=== PATIENT | female | born 1985 | race Caucasian/White ===

== ENCOUNTER → 2016-05-23 | Outpatient (CLI) | payer OTHER ==
--- NOTE | 2016-05-23 10:24 | MR ---
EXAMINATION TYPE: MR lumbar spine wo con DATE OF EXAM: 05/23/2016 10:17 AM COMPARISON: 10/01/2015 HISTORY: Back pain TECHNIQUE: T1 and T2 axial and sagittal images of the lumbar spine are submitted. FINDINGS: There is no abnormal signal seen within the visualized spinal cord or paraspinal soft tissu es. Cortical loss involving the right and left mid kidney suggests possible previous infection. At L1-2 there is no disc herniation, canal stenosis, or foraminal encroachment. At L2-3 there is no disc herniation, canal stenosis, or foraminal encroachment At L3-4 there is no disc herniation, canal stenosis, or foraminal encroachment At L4-5 there is Increased signal at the posterior aspect of the disc is compatible with annular tear . Mild anterior mass effect on the thecal sac is present due to broad-based posterior central disc he rniation. There may be contact with the proximal L5 nerve roots. No significant foraminal encroachmen t. Mild hypertrophy of the ligamentum flavum and facet joints causes some posterior lateral mass effe ct on the thecal sac. At L5-S1 there is no disc herniation, canal stenosis, or foraminal encroachment IMPRESSION: 1. Stable annular tear and central disc herniation with compression of the thecal sac at L4-L5. Mild canal stenosis.
== END | disposition home or self-care (01) ==
LOC: RADMRIMAIN 09:30
PROVIDERS: ATTEND Psychiatry & Neurology Neurology
DX: M48.06 Spinal stenosis, lumbar region (principal); M51.26 Other intervertebral disc displacement, lumbar region
CPT/HCPCS: 72148

== ENCOUNTER 2017-05-20 10:54 | Emergency (ER) | payer OTHER ==
--- NOTE | 2017-05-20 12:19 | ED ---
General Adult HPI - General Chief complaint: Urogenital Stated complaint: Uti Time Seen by Provider: 05/20/17 11:31 Source: patient, RN notes reviewed, old records reviewed Mode of arrival: ambulatory Limitations: no limitations - History of Present Illness Initial comments: This is a 31-year-old female the ER for evaluation. This patient does say for evaluation regards to burning with urination. Recently diagnosed urinary tract infection taking antibiotics as appropriate with no improvement. No fevers. No flank pain. - Related Data Home Medications Medication Instructions Recorded Confirmed HYDROcodone/APAP 10-325MG [[place] 1 tab PO Q6H PRN 06/19/13 05/20/17 10-325] Gabapentin [Neurontin] 800 mg PO TID 02/18/15 05/20/17 Ibuprofen [Motrin] 800 mg PO TID 02/18/15 05/20/17 Butalb/APAP/Caff 50-325-40Mg 1 tab PO Q4H PRN 05/20/17 05/20/17 [Fioricet 50-325-40] Cetirizine HCl [Zyrtec] 10 mg PO DAILY PRN 05/20/17 05/20/17 Previous Rx's Medication Instructions Recorded Nitrofurantoin Monohyd/M-Cryst 100 mg PO Q12HR #14 cap 05/20/17 [Macrobid] Phenazopyridine [Pyridium] 200 mg PO TID #6 tablet 05/20/17 Allergies Allergy/AdvReac Type Severity Reaction Status Date / Time amoxicillin [Amoxicillin] Allergy Swelling Verified 05/20/17 12:55 ampicillin sodium Allergy Rash/Hives Verified 05/20/17 12:55 [From Unasyn] cephalexin monohydrate Allergy Rash/Hives Verified 05/20/17 12:55 [From Keflex] coconut Allergy Anaphylaxis Verified 05/20/17 12:55 iodine Allergy Unknown Verified 05/20/17 12:55 Penicillins Allergy Swelling Verified 05/20/17 12:55 red dye Allergy Nausea & Verified 05/20/17 12:55 Vomiting & Diarrhea sulbactam sodium Allergy Rash/Hives Verified 05/20/17 12:55 [From Unasyn] vancomycin Allergy Rash/Hives Verified 05/20/17 12:55 Review of Systems ROS Statement: Those systems with pertinent positive or pertinent negative responses have been documented in the HPI. ROS Other: All systems not noted in ROS Statement are negative. Past Medical History Past Medical History: Asthma, GERD/Reflux Additional Past Medical History / Comment(s): migraine, arthritis, chronic back pain History of Any Multi-Drug Resistant Organisms: None Reported Past Surgical History: Hernia Repair, Hysterectomy, Orthopedic Surgery, Tubal Ligation, Uterine Ablation Additional Past Surgical History / Comment(s): issa knees mult arthroscopic sx, cyst removed left wrist and right shoulder, Past Anesthesia/Blood Transfusion Reactions: Postoperative Nausea & Vomiting ( PONV) Past Psychological History: Anxiety, Bipolar, Depression Smoking Status: Current every day smoker Past Alcohol Use History: None Reported Past Drug Use History: None Reported General Exam Limitations: no limitations General appearance: alert, in no apparent distress Head exam: Present: atraumatic, normocephalic, normal inspection Eye exam: Present: normal appearance, PERRL, EOMI. Absent: scleral icterus, conjunctival injection, periorbital swelling ENT exam: Present: normal exam, mucous membranes moist Neck exam: Present: normal inspection. Absent: tenderness, meningismus, lymphadenopathy Respiratory exam: Present: normal lung sounds bilaterally. Absent: respiratory distress, wheezes, rales, rhonchi, stridor Cardiovascular Exam: Present: regular rate, normal rhythm, normal heart sounds. Absent: systolic murmur, diastolic murmur, rubs, gallop, clicks GI/Abdominal exam: Present: soft, normal bowel sounds. Absent: distended, tenderness, guarding, rebound, rigid Extremities exam: Present: normal inspection, full ROM, normal capillary refill. Absent: tenderness, pedal edema, joint swelling, calf tenderness Back exam: Present: normal inspection Neurological exam: Present: alert, oriented X3, CN II-XII intact Psychiatric exam: Present: normal affect, normal mood Skin exam: Present: warm, dry, intact, normal color. Absent: rash Course Vital Signs 05/20/17 10:56 Temperature 98.6 F Pulse Rate 91 Respiratory 18 Rate Blood Pressure 140/62 O2 Sat by Pulse 97 Oximetry Medical Decision Making - Medical Decision Making 31 female with history of UTI positive urinary tract infection, will be discharged home with antibiotics. Cultures obtained. - Lab Data Lab Results 05/20/17 05/20/17 Range/Units 12:00 12:00 Urine Color Light Yellow Urine Appearance Cloudy H (Clear) Urine pH 6.5 (5.0-8.0) Ur Specific [place] 1.014 (1.001-1.035) Urine Protein 1+ H (Negative) Urine Glucose (UA) Negative (Negative) Urine Ketones Negative (Negative) Urine Blood Moderate H (Negative) Urine Nitrite Negative (Negative) Urine Bilirubin Negative (Negative) Urine Urobilinogen <2.0 (<2.0) mg/dL Ur Leukocyte Esterase Trace H (Negative) Urine RBC 75 H (0-5) /hpf Urine WBC 12 H (0-5) /hpf Ur Squamous Epith Cells 9 H (0-4) /hpf Urine Mucus Rare H (None) /hpf Urine HCG, Qual Not Detected (Not Detectd) Disposition Clinical Impression: Urinary tract infection Disposition: HOME SELF-CARE Condition: Good Instructions: Urinary Tract Infection in Women (ED) Prescriptions: Nitrofurantoin Monohyd/M-Cryst [Macrobid] 100 mg PO Q12HR #14 cap Phenazopyridine [Pyridium] 200 mg PO TID #6 tablet Referrals: Tayo Mcelroy Jr, [Primary Care Provider] - 1-2 days
[2017-05-20 12:24] LABS: Appearance,Urine Cloudy (Clear); Bilirubin,Urine Negative (Negative); Blood,Urine Moderate (Negative); Color,Urine Light Yellow; Glucose,Urine (UA) Negative (Negative); Ketones,Urine Negative (Negative); Leukocyte Esterase,Urine Trace (Negative); Mucus,Urine Rare /hpf; Nitrite,Urine Negative (Negative); PH, Urine 6.5 (5.0-8.0); Protein,Urine 1+ (Negative); RBC,Urine 75 /hpf (0-5); Specific Gravity,Urine 1.014 (1.001-1.035); Squamous Epithelial Cell,Urine 9 /hpf (0-4); Urobilinogen,Urine <2.0 mg/dL (<2.0); WBC,Urine 12 /hpf (0-5)
[2017-05-20] MEDS ORDERED: AZITHROMYCIN 500 MG TAB PO STA (13:02)
[2017-05-20] MEDS ORDERED: PHENAZOPYRIDINE 200 MG TAB PO STA (13:02)
[2017-05-20 13:31] VITALS: BP 116/60; PULSE 74; RESP 16; TEMP 96.9
[2017-05-22 15:42] LABS: N. gonorrhoeae,PCR Negative (Neg,Equiv); Neisseria Source Urine
[2017-05-22 15:46] LABS: C. trachomatis,PCR Negative (Neg,Equiv); Chlamydia trachomatis Source Urine
== END 2017-05-20 13:24 | disposition home or self-care (01) ==
LOC: EC 10:54
DX: N39.0 Urinary tract infection, site not specified (principal); M54.9 Dorsalgia, unspecified; G89.29 Other chronic pain; F17.200 Nicotine dependence, unspecified, uncomplicated; Z79.1 Long term (current) use of non-steroidal anti-inflammatories (NSAID); Z79.899 Other long term (current) drug therapy; Z88.0 Allergy status to penicillin; Z88.1 Allergy status to other antibiotic agents; Z88.8 Allergy status to other drugs, medicaments and biological substances; Z91.018 Allergy to other foods; Z91.09 Other allergy status, other than to drugs and biological substances; Z90.710 Acquired absence of both cervix and uterus
CPT/HCPCS: 81001; 81025; 87086; 87491; 87591; 99284

== ENCOUNTER 2017-07-22 18:07 | Emergency (ER) | payer OTHER ==
[2017-07-22 18:18] VITALS: BP 128/65; PULSE 76; RESP 18; TEMP 98.5
--- NOTE | 2017-07-22 18:31 | ED ---
General Adult HPI - General Chief complaint: Urogenital Stated complaint: Poss UTI Time Seen by Provider: 07/22/17 18:17 Source: patient, RN notes reviewed Mode of arrival: ambulatory Limitations: no limitations - History of Present Illness Initial comments: Patient 31-year-old female presented to the emergency room today with chief complaint of possible urinary tract infection. Patient is that symptoms started yesterday. Is to increased frequency and dysuria. Does admit some pain in the left side of her back that comes and goes. She states she's had similar symptoms in the past with urinary tract infection. She also admits to a history of kidney stones but states this feels UTI. Patient denies any other complaints or symptoms. Patient denies any recent fever, chills, shortness of breath, chest pain, nausea or vomiting, numbness or tingling, constipation or diarrhea, headaches or visual changes, or any other complaints. - Related Data Home Medications Medication Instructions Recorded Confirmed HYDROcodone/APAP 10-325MG [[place] 1 tab PO Q6H PRN 06/19/13 05/20/17 10-325] Gabapentin [Neurontin] 800 mg PO TID 02/18/15 05/20/17 Ibuprofen [Motrin] 800 mg PO TID 02/18/15 05/20/17 Butalb/APAP/Caff 50-325-40Mg 1 tab PO Q4H PRN 05/20/17 05/20/17 [Fioricet 50-325-40] Cetirizine HCl [Zyrtec] 10 mg PO DAILY PRN 05/20/17 05/20/17 Previous Rx's Medication Instructions Recorded Nitrofurantoin Monohyd/M-Cryst 100 mg PO Q12HR #14 cap 05/20/17 [Macrobid] Phenazopyridine [Pyridium] 200 mg PO TID #6 tablet 05/20/17 Nitrofurantoin Monohyd/M-Cryst 100 mg PO Q12HR #14 cap 07/22/17 [Macrobid] Phenazopyridine [Pyridium] 100 mg PO TID 3 Days day 07/22/17 Allergies Allergy/AdvReac Type Severity Reaction Status Date / Time amoxicillin [Amoxicillin] Allergy Swelling Verified 07/22/17 18:16 ampicillin sodium Allergy Rash/Hives Verified 07/22/17 18:16 [From Unasyn] cephalexin monohydrate Allergy Rash/Hives Verified 07/22/17 18:16 [From Keflex] coconut Allergy Anaphylaxis Verified 07/22/17 18:16 iodine Allergy Unknown Verified 07/22/17 18:16 Penicillins Allergy Swelling Verified 07/22/17 18:16 red dye Allergy Nausea & Verified 07/22/17 18:16 Vomiting & Diarrhea sulbactam sodium Allergy Rash/Hives Verified 07/22/17 18:16 [From Unasyn] vancomycin Allergy Rash/Hives Verified 07/22/17 18:16 Review of Systems ROS Statement: Those systems with pertinent positive or pertinent negative responses have been documented in the HPI. ROS Other: All systems not noted in ROS Statement are negative. Past Medical History Past Medical History: Asthma, GERD/Reflux Additional Past Medical History / Comment(s): migraine, arthritis, chronic back pain History of Any Multi-Drug Resistant Organisms: None Reported Past Surgical History: Hernia Repair, Hysterectomy, Orthopedic Surgery, Tubal Ligation, Uterine Ablation Additional Past Surgical History / Comment(s): issa knees mult arthroscopic sx, cyst removed left wrist and right shoulder, Past Anesthesia/Blood Transfusion Reactions: Postoperative Nausea & Vomiting ( PONV) Past Psychological History: Anxiety, Bipolar, Depression Smoking Status: Current every day smoker Past Alcohol Use History: None Reported Past Drug Use History: None Reported General Exam - General Exam Comments Initial Comments: General: The patient is awake and alert, in no distress, and does not appear acutely ill. Eye: extra-ocular movements are intact. No nystagmus. There is normal conjunctiva bilaterally. Ears, nose, mouth and throat: There are moist mucous membranes and no oral lesions. Neck: The neck is supple, there is no tenderness or JVD. Cardiovascular: There is a regular rate and rhythm. No murmur, rub or gallop is appreciated. Respiratory: Lungs are clear to auscultation, respirations are non-labored, breath sounds are equal. No wheezes, stridor, rales, or rhonchi. Gastrointestinal: Soft, non-distended, non-tender abdomen without masses or organomegaly noted. There is no rebound or guarding present. Musculoskeletal: Normal ROM, no tenderness. Strength 5/5. Sensation intact. Neurological: A&O x 3. CN II-XII intact, There are no obvious motor or sensory deficits. Coordination appears grossly intact. Speech is normal. Skin: Skin is warm and dry and no rashes or lesions are noted. Psychiatric: Cooperative, appropriate mood & affect, normal judgment. Limitations: no limitations Course Vital Signs 07/22/17 18:16 Temperature 98.5 F Pulse Rate 76 Respiratory 18 Rate Blood Pressure 128/65 O2 Sat by Pulse 99 Oximetry Medical Decision Making - Medical Decision Making 31-year-old female presenting to the emergency room today with a UTI type symptoms. She does not that symptoms started yesterday. Patient has no fever here in the emergency room. Her vitals are stable. Patient's urinalysis reveals reviewed and does show evidence for urinary tract infection. Patient has multiple ALLERGIES to antibiotics. Patient states that she's been on Macrobid in the past she states is what works best for her. Patient declined blood work at this time states feels comfortable going home on antibiotics. Advised close follow-up following up with the family doctor over the next 2 days. Advised to return if symptoms increase or worsen. She states understanding and is in agreement. - Lab Data Lab Results 07/22/17 07/22/17 Range/Units 18:14 18:14 Urine Color Yellow Urine Appearance Cloudy H (Clear) Urine pH 6.5 (5.0-8.0) Ur Specific [place] 1.016 (1.001-1.035) Urine Protein Negative (Negative) Urine Glucose (UA) Negative (Negative) Urine Ketones Negative (Negative) Urine Blood Small H (Negative) Urine Nitrite Positive H (Negative) Urine Bilirubin Negative (Negative) Urine Urobilinogen <2.0 (<2.0) mg/dL Ur Leukocyte Esterase Large H (Negative) Urine RBC 15 H (0-5) /hpf Urine WBC >182 H (0-5) /hpf Urine WBC Clumps Few H (None) /hpf Ur Squamous Epith Cells 4 (0-4) /hpf Urine Bacteria Many H (None) /hpf Urine Yeast (Budding) Many H (None) /hpf Urine HCG, Qual Not Detected (Not Detectd) Disposition Clinical Impression: UTI (urinary tract infection) Disposition: HOME SELF-CARE Condition: Good Instructions: Urinary Tract Infection in Women (ED) Additional Instructions: Please use medication as discussed. Please follow-up with family doctor in the next 2 days of symptoms have not improved. Please return to emergency room if the symptoms increase or worsen or for any other concerns. Prescriptions: Nitrofurantoin Monohyd/M-Cryst [Macrobid] 100 mg PO Q12HR #14 cap Phenazopyridine [Pyridium] 100 mg PO TID 3 Days day Is patient prescribed a controlled substance at d/c from ED?: No Referrals: Tayo Mcelroy Jr, DO [Primary Care Provider] - 1-2 days Time of Disposition: 19:18
[2017-07-22 18:46] LABS: Appearance,Urine Cloudy (Clear); Bacteria,Urine Many /hpf; Bilirubin,Urine Negative (Negative); Blood,Urine Small (Negative); Budding Yeast,Urine Many /hpf; Color,Urine Yellow; Glucose,Urine (UA) Negative (Negative); Ketones,Urine Negative (Negative); Leukocyte Esterase,Urine Large (Negative); Nitrite,Urine Positive (Negative); PH, Urine 6.5 (5.0-8.0); Protein,Urine Negative (Negative); RBC,Urine 15 /hpf (0-5); Specific Gravity,Urine 1.016 (1.001-1.035); Squamous Epithelial Cell,Urine 4 /hpf (0-4); Urobilinogen,Urine <2.0 mg/dL (<2.0); WBC,Urine >182 /hpf (0-5)
== END 2017-07-22 19:25 | disposition home or self-care (01) ==
LOC: EC 18:07
DX: N39.0 Urinary tract infection, site not specified (principal); G43.909 Migraine, unspecified, not intractable, without status migrainosus; M54.9 Dorsalgia, unspecified; G89.29 Other chronic pain; F17.200 Nicotine dependence, unspecified, uncomplicated; Z79.1 Long term (current) use of non-steroidal anti-inflammatories (NSAID); Z79.899 Other long term (current) drug therapy; Z88.0 Allergy status to penicillin; Z88.1 Allergy status to other antibiotic agents; Z91.09 Other allergy status, other than to drugs and biological substances; Z91.018 Allergy to other foods; Z88.8 Allergy status to other drugs, medicaments and biological substances; Z98.51 Tubal ligation status; Z90.710 Acquired absence of both cervix and uterus
CPT/HCPCS: 81001; 81025; 87077; 87086; 87186; 99283

== ENCOUNTER 2017-09-17 18:24 | Emergency (ER) | payer OTHER ==
[2017-09-17 18:33] VITALS: BP 121/78; PULSE 76; RESP 18; TEMP 98.5
--- NOTE | 2017-09-17 18:43 | ED ---
Female Urogenital HPI - General Chief complaint: Urogenital Stated complaint: POSS UTI Time Seen by Provider: 09/17/17 18:37 Source: patient, RN notes reviewed Mode of arrival: ambulatory Limitations: no limitations - History of Present Illness Initial comments: This is a 32-year-old female who presents to the emergency department with chief complaint of possible urinary tract infection. Patient states that since Monday she has been having burning with urination and bilateral low back and flank pain. Patient states that she has had frequent urinary tract infections and that this feels like her previous infections. She states that she is normally treated with Macrobid. Patient denies any significant abdominal pain, nausea or vomiting, diarrhea or constipation. Denies fevers or chills. Patient states there is no chance that she could be as she has had a hysterectomy. - Related Data Home Medications Medication Instructions Recorded Confirmed HYDROcodone/APAP 10-325MG [[place] 1 tab PO Q6H PRN 06/19/13 05/20/17 10-325] Gabapentin [Neurontin] 800 mg PO TID 02/18/15 05/20/17 Ibuprofen [Motrin] 800 mg PO TID 02/18/15 05/20/17 Butalb/APAP/Caff 50-325-40Mg 1 tab PO Q4H PRN 05/20/17 05/20/17 [Fioricet 50-325-40] Cetirizine HCl [Zyrtec] 10 mg PO DAILY PRN 05/20/17 05/20/17 Previous Rx's Medication Instructions Recorded Nitrofurantoin Monohyd/M-Cryst 100 mg PO Q12HR #14 cap 05/20/17 [Macrobid] Phenazopyridine [Pyridium] 200 mg PO TID #6 tablet 05/20/17 Nitrofurantoin Monohyd/M-Cryst 100 mg PO Q12HR #14 cap 07/22/17 [Macrobid] Nitrofurantoin Monohyd/M-Cryst 100 mg PO Q12HR #14 cap 09/17/17 [Macrobid] Phenazopyridine [Pyridium] 100 mg PO TID 3 Days day 09/17/17 Allergies Allergy/AdvReac Type Severity Reaction Status Date / Time amoxicillin [Amoxicillin] Allergy Swelling Verified 09/17/17 18:33 ampicillin sodium Allergy Rash/Hives Verified 09/17/17 18:33 [From Unasyn] cephalexin monohydrate Allergy Rash/Hives Verified 09/17/17 18:33 [From Keflex] coconut Allergy Anaphylaxis Verified 09/17/17 18:33 iodine Allergy Unknown Verified 09/17/17 18:33 Penicillins Allergy Swelling Verified 09/17/17 18:33 red dye Allergy Nausea & Verified 09/17/17 18:33 Vomiting & Diarrhea sulbactam sodium Allergy Rash/Hives Verified 09/17/17 18:33 [From Unasyn] vancomycin Allergy Rash/Hives Verified 09/17/17 18:33 Review of Systems ROS Statement: Those systems with pertinent positive or pertinent negative responses have been documented in the HPI. ROS Other: All systems not noted in ROS Statement are negative. Past Medical History Past Medical History: Asthma, GERD/Reflux Additional Past Medical History / Comment(s): migraine, arthritis, chronic back pain History of Any Multi-Drug Resistant Organisms: None Reported Past Surgical History: Hernia Repair, Hysterectomy, Orthopedic Surgery, Tubal Ligation, Uterine Ablation Additional Past Surgical History / Comment(s): issa knees mult arthroscopic sx, cyst removed left wrist and right shoulder, Past Anesthesia/Blood Transfusion Reactions: Postoperative Nausea & Vomiting ( PONV) Past Psychological History: Anxiety, Bipolar, Depression Smoking Status: Current every day smoker Past Alcohol Use History: None Reported Past Drug Use History: None Reported General Exam - General Exam Comments Initial Comments: General: Awake and alert, well-developed; in no apparent distress. Does not appear acutely ill. HEENT: Head atraumatic, normocephalic. Pupils are equal, round and reactive to light. Extraocular movements intact. Oropharynx moist without erythema or exudate. Neck: Supple. Normal ROM. Cardiovascular: Regular rate and rhythm. No murmurs, rubs or gallops. Chest symmetrical. Respiratory: Lungs clear to auscultation bilaterally. No wheezes, rales or rhonchi. Normal respiratory effort with no use of accessory muscles. Abdomen: Soft, non-tender, non-distended. No rigidity, rebound or guarding. Normal bowel sounds in all 4 quadrants. Musculoskeletal: Normal ROM, no tenderness bilateral upper and lower extremities. Ambulating normally. Skin: [place], warm and dry without rashes or lesions. Neurological: Alert and oriented x3. CN II-XII grossly intact. Speech is fluent and answers are appropriate. No focal neuro deficits. Psychiatric: Normal mood and affect. No overt signs of depression or anxiety noted. Limitations: no limitations Course Vital Signs 09/17/17 18:31 Temperature 98.5 F Pulse Rate 76 Respiratory 18 Rate Blood Pressure 121/78 O2 Sat by Pulse 99 Oximetry Medical Decision Making - Medical Decision Making This is a 32-year-old female who presents to the emergency department with chief complaint of possible urinary tract infection. Patient reports dysuria and bilateral flank pain. No fevers or chills. UA revealed positive nitrites, large leukocyte esterase, high white blood cells, white blood cell clumps and many bacteria. Patient will be treated for urinary tract infection with Macrobid. Vital signs are stable and she is in no acute distress. Patient will be discharged home at this time. She is in agreement and voices understanding. All questions answered. - Lab Data Lab Results 09/17/17 Range/Units 18:42 Urine Color Light Yellow Urine Appearance Turbid H (Clear) Urine pH 6.0 (5.0-8.0) Ur Specific [place] 1.010 (1.001-1.035) Urine Protein 1+ H (Negative) Urine Glucose (UA) Negative (Negative) Urine Ketones Negative (Negative) Urine Blood Moderate H (Negative) Urine Nitrite Positive H (Negative) Urine Bilirubin Negative (Negative) Urine Urobilinogen <2.0 (<2.0) mg/dL Ur Leukocyte Esterase Large H (Negative) Urine RBC 62 H (0-5) /hpf Urine WBC >182 H (0-5) /hpf Urine WBC Clumps Many H (None) /hpf Ur Squamous Epith Cells 5 H (0-4) /hpf Urine Bacteria Many H (None) /hpf Urine Mucus Few H (None) /hpf Urine Yeast (Budding) Few H (None) /hpf Disposition Clinical Impression: Urinary tract infection Disposition: HOME SELF-CARE Condition: Good Instructions: Urinary Tract Infection in Women (ED) Additional Instructions: Please take medications as prescribed. Please follow up with primary care provider within 1-2 days. Return to emergency department if symptoms should worsen or any concerns arise. Prescriptions: Nitrofurantoin Monohyd/M-Cryst [Macrobid] 100 mg PO Q12HR #14 cap Phenazopyridine [Pyridium] 100 mg PO TID 3 Days day Is patient prescribed a controlled substance at d/c from ED?: No Referrals: Tayo Mcelroy Jr, [Primary Care Provider] - 1-2 days Time of Disposition: 19:09
[2017-09-17 19:04] LABS: Appearance,Urine Turbid (Clear); Bacteria,Urine Many /hpf; Bilirubin,Urine Negative (Negative); Blood,Urine Moderate (Negative); Budding Yeast,Urine Few /hpf; Color,Urine Light Yellow; Glucose,Urine (UA) Negative (Negative); Ketones,Urine Negative (Negative); Leukocyte Esterase,Urine Large (Negative); Mucus,Urine Few /hpf; Nitrite,Urine Positive (Negative); Protein,Urine 1+ (Negative); RBC,Urine 62 /hpf (0-5); Squamous Epithelial Cell,Urine 5 /hpf (0-4); Urobilinogen,Urine <2.0 mg/dL (<2.0); WBC,Urine >182 /hpf (0-5)
== END 2017-09-17 19:19 | disposition home or self-care (01) ==
LOC: EC 18:24
DX: N39.0 Urinary tract infection, site not specified (principal); M54.5 Low back pain; G43.909 Migraine, unspecified, not intractable, without status migrainosus; M19.90 Unspecified osteoarthritis, unspecified site; F17.200 Nicotine dependence, unspecified, uncomplicated; Z79.1 Long term (current) use of non-steroidal anti-inflammatories (NSAID); Z79.899 Other long term (current) drug therapy; Z88.0 Allergy status to penicillin; Z88.1 Allergy status to other antibiotic agents; Z88.8 Allergy status to other drugs, medicaments and biological substances; Z91.018 Allergy to other foods; Z91.09 Other allergy status, other than to drugs and biological substances; Z90.710 Acquired absence of both cervix and uterus
CPT/HCPCS: 81001; 99283

== ENCOUNTER → 2017-12-21 | Outpatient (CLI) | payer OTHER ==
--- NOTE | 2017-12-21 10:21 | MR ---
EXAMINATION TYPE: MR lumbar spine wo con DATE OF EXAM: 12/21/2017 COMPARISON: 05/23/2016 HISTORY: Low back pain TECHNIQUE: T1 and T2 axial and sagittal images of the lumbar spine are submitted. FINDINGS: There is no abnormal signal seen within the visualized spinal cord or paraspinal soft tissu es. At L1-2 there is no disc herniation, canal stenosis, or foraminal encroachment. At L2-3 there is no disc herniation, canal stenosis, or foraminal encroachment. At L3-4 there is no disc herniation, canal stenosis, or foraminal encroachment. At L4-5 there is disc desiccation with annular tear. Mild focal central disc protrusion with mild eff acement of thecal sac. Hypertrophy of the ligamentum flavum and facets contributes to a reduction in AP canal diameter. Neural foramina remain patent. At L5-S1 there is no disc herniation or canal stenosis. No foraminal encroachment. IMPRESSION: 1. Stable annular tear and central disc small herniation with mild anterior compression of the thecal sac and mild canal stenosis at L4-L5. No foraminal encroachment.
== END | disposition home or self-care (01) ==
LOC: RADMRIMAIN 09:21
PROVIDERS: ATTEND Psychiatry & Neurology Neurology
DX: M48.061 Spinal stenosis, lumbar region without neurogenic claudication (principal); M51.26 Other intervertebral disc displacement, lumbar region; Z91.048 Other nonmedicinal substance allergy status; Z88.1 Allergy status to other antibiotic agents; Z88.0 Allergy status to penicillin; Z88.6 Allergy status to analgesic agent; Z88.8 Allergy status to other drugs, medicaments and biological substances
CPT/HCPCS: 72148

== ENCOUNTER 2017-12-22 18:34 | Emergency (ER) | payer OTHER ==
[2017-12-22 18:44] VITALS: BP 112/78; PULSE 82; RESP 20; TEMP 98.1
[2017-12-22] MEDS ORDERED: KETOROLAC 60 MG/2 ML VIAL IM STA (19:14)
[2017-12-22] MEDS ORDERED: ORPHENADRINE 30 MG/ML 2 ML VIAL IM STA (19:14)
[2017-12-22] MEDS ORDERED: MORPHINE SULFATE 4 MG/ML SYRINGE IM STA (19:14)
--- NOTE | 2017-12-22 19:15 | ED ---
Neck Injury/Pain HPI - General Chief Complaint: Neck Pain/Injury Stated Complaint: LOWER BACK PAIN Time Seen by Provider: 12/22/17 18:54 Source: RN notes reviewed, old records reviewed Mode of arrival: ambulatory Limitations: no limitations - History of Present Illness Initial Comments: 32 year old female with chronic back pain, reports onset of back pain worse today that is not managed by her at home medicaitons. Patient denies trauma or falls. She denies saddle anesthesias. She follows with neurologist, and had MRI of lumbar spine yesterday. She reports that her pain has been progessively worse over the past few weeks, which is why the MRI was completed. She takes norco at home. - Related Data Home Medications Medication Instructions Recorded Confirmed HYDROcodone/APAP 10-325MG [Sharon 1 tab PO TID PRN 06/19/13 12/22/17 10-325] Gabapentin [Neurontin] 800 mg PO TID PRN 02/18/15 12/22/17 Ibuprofen [Motrin] 800 mg PO TID PRN 02/18/15 12/22/17 Cetirizine HCl [Zyrtec] 10 mg PO DAILY PRN 05/20/17 12/22/17 Previous Rx's Medication Instructions Recorded Methocarbamol [Robaxin] 750 mg PO QID #15 tab 12/22/17 Allergies Allergy/AdvReac Type Severity Reaction Status Date / Time amoxicillin [Amoxicillin] Allergy Swelling Verified 12/22/17 19:08 ampicillin sodium Allergy Rash/Hives Verified 12/22/17 19:08 [From Unasyn] cephalexin monohydrate Allergy Rash/Hives Verified 12/22/17 19:08 [From Keflex] coconut Allergy Anaphylaxis Verified 12/22/17 19:08 cortisone Allergy Rash/Hives Verified 12/22/17 19:08 iodine Allergy Unknown Verified 12/22/17 19:08 Penicillins Allergy Swelling Verified 12/22/17 19:08 prednisone Allergy Rash/Hives Verified 12/22/17 19:08 red dye Allergy Nausea & Verified 12/22/17 19:08 Vomiting & Diarrhea sulbactam sodium Allergy Rash/Hives Verified 12/22/17 19:08 [From Unasyn] vancomycin Allergy Rash/Hives Verified 12/22/17 19:08 Review of Systems ROS Statement: Those systems with pertinent positive or pertinent negative responses have been documented in the HPI. ROS Other: All systems not noted in ROS Statement are negative. Past Medical History Past Medical History: Asthma, GERD/Reflux Additional Past Medical History / Comment(s): migraine, arthritis, chronic back pain History of Any Multi-Drug Resistant Organisms: None Reported Past Surgical History: Hernia Repair, Hysterectomy, Orthopedic Surgery, Tubal Ligation, Uterine Ablation Additional Past Surgical History / Comment(s): issa knees mult arthroscopic sx, cyst removed left wrist and right shoulder, Past Anesthesia/Blood Transfusion Reactions: Postoperative Nausea & Vomiting ( PONV) Past Psychological History: Anxiety, Bipolar, Depression Smoking Status: Current every day smoker Past Alcohol Use History: None Reported Past Drug Use History: None Reported General Exam - General Exam Comments Initial Comments: 32 year old female, no acute distress. Limitations: no limitations General appearance: alert, in no apparent distress Head exam: Present: atraumatic, normocephalic, normal inspection Eye exam: Present: normal appearance, PERRL, EOMI. Absent: scleral icterus, conjunctival injection, periorbital swelling ENT exam: Present: normal exam, mucous membranes moist Neck exam: Present: normal inspection. Absent: tenderness, meningismus, lymphadenopathy Respiratory exam: Present: normal lung sounds bilaterally. Absent: respiratory distress, wheezes, rales, rhonchi, stridor Cardiovascular Exam: Present: regular rate, normal rhythm, normal heart sounds. Absent: systolic murmur, diastolic murmur, rubs, gallop, clicks Back exam: Present: normal inspection, full ROM, tenderness (Patient has lumbar spinal tenderness. ) Neurological exam: Present: alert, oriented X3, CN II-XII intact Psychiatric exam: Present: normal affect, normal mood Skin exam: Present: warm, dry, intact, normal color. Absent: rash Course Vital Signs 12/22/17 18:42 Temperature 98.1 F Pulse Rate 82 Respiratory 20 Rate Blood Pressure 112/78 O2 Sat by Pulse 99 Oximetry Medical Decision Making - Medical Decision Making 32 year old female presents with worsening chronic back pain. She had MRI yesterday, those results were reviewed and discussed with patient. Patient has stable findings from previous imaging studies. She has L4 disc herniation and spinal canal stenosis. Patient given PO medcations today. Patient advised to follow up with PCP and pain management specialty. REturn parameters discussed. - Lab Data Lab Results 12/22/17 Range/Units 19:29 Urine Color Light Yellow Urine Appearance Cloudy H (Clear) Urine pH 6.5 (5.0-8.0) Ur Specific [place] 1.011 (1.001-1.035) Urine Protein Negative (Negative) Urine Glucose (UA) Negative (Negative) Urine Ketones Negative (Negative) Urine Blood Negative (Negative) Urine Nitrite Negative (Negative) Urine Bilirubin Negative (Negative) Urine Urobilinogen <2.0 (<2.0) mg/dL Ur Leukocyte Esterase Negative (Negative) Urine WBC 5 (0-5) /hpf Ur Squamous Epith Cells 26 H (0-4) /hpf Amorphous Sediment Few H (None) /hpf Urine Mucus Rare H (None) /hpf - Radiology Data Radiology results: report reviewed MRI reviewed from previous visit. L4 disc herniation noted. No thecal encroachment. Disposition Clinical Impression: Chronic back pain Disposition: HOME SELF-CARE Condition: Good Instructions: Chronic Back Pain (ED) Additional Instructions: Patient is continue at home pain medication. Apply heat and ice over the area. Follow-up with PCP. Return to emergency department if any alarming signs or symptoms occur. Prescriptions: Methocarbamol [Robaxin] 750 mg PO QID #15 tab Is patient prescribed a controlled substance at d/c from ED?: No Referrals: Tayo Mcelroy Jr, DO [Primary Care Provider] - 1-2 days Time of Disposition: 20:51
[2017-12-22] MEDS ORDERED: IBUPROFEN 600 MG STARTER PACK 4 TAB BTL PO STA (19:39)
[2017-12-22] MEDS ORDERED: CYCLOBENZAPRINE 10MG STARTER 3 TAB BTL PO STA (19:39)
[2017-12-22] MEDS ORDERED: HYDROcodone/APAP 10-325MG 1 EACH TAB PO ONE (19:39)
[2017-12-22 19:59] LABS: Amorphous Sediment,Urine Few /hpf; Appearance,Urine Cloudy (Clear); Bilirubin,Urine Negative (Negative); Blood,Urine Negative (Negative); Color,Urine Light Yellow; Glucose,Urine (UA) Negative (Negative); Ketones,Urine Negative (Negative); Leukocyte Esterase,Urine Negative (Negative); Mucus,Urine Rare /hpf; Nitrite,Urine Negative (Negative); PH, Urine 6.5 (5.0-8.0); Protein,Urine Negative (Negative); Specific Gravity,Urine 1.011 (1.001-1.035); Squamous Epithelial Cell,Urine 26 /hpf (0-4); Urobilinogen,Urine <2.0 mg/dL (<2.0); WBC,Urine 5 /hpf (0-5)
--- NOTE | 2017-12-23 04:56 | CDI ---
Documentation Clarification OP Dear PIPER Edwards: Please do addendum to ED report for HPI , Physical exam and MDM. Thank you, Romana Breaux Grill Attendant If you have any question, Please contact manager internet retails sales at [phone] [facility]
== END 2017-12-22 21:06 | disposition home or self-care (01) ==
LOC: EC 18:34
DX: M54.5 Low back pain (principal); G89.29 Other chronic pain; F17.200 Nicotine dependence, unspecified, uncomplicated; Z88.0 Allergy status to penicillin; Z88.1 Allergy status to other antibiotic agents; Z88.8 Allergy status to other drugs, medicaments and biological substances; Z91.09 Other allergy status, other than to drugs and biological substances; Z91.018 Allergy to other foods; Z53.8 Procedure and treatment not carried out for other reasons
CPT/HCPCS: 81001; 99284

== ENCOUNTER 2017-12-29 11:50 | Emergency (ER) | payer OTHER ==
[2017-12-29 13:07] VITALS: RESP 16
[2017-12-29] MEDS ORDERED: KETOROLAC 30 MG/ML 1 ML VIAL IVP STA (15:28)
[2017-12-29] MEDS ORDERED: DIAZEPAM 5 MG/ML 2 ML INJ IVP STA (15:28)
--- NOTE | 2017-12-29 15:36 | ED ---
Back Pain HPI - General Chief Complaint: Back Pain/Injury Stated Complaint: Lower back pain Time Seen by Provider: 12/29/17 14:48 Source: patient - History of Present Illness Initial Comments: Patient is a 32 year old female who presents with a CC of back pain. the patient has chronic back pain and several prior visits within the last week. she had an MRI performed that showed Stable annular tear and central disc small herniation with mild anterior compression of the thecal sac and mild canal stenosis at L4 to L5. No foraminal encroachment. patient states that her pain has not gotten any better and that she now has left leg numbness. she cannot identify any inciting incidences, there are no aggravating or alleviating factors. patient states she does not have any bowel or bladder incontinence. she denies fever, chills, nausea, vomiting, chest pain, sob, or dysuria. - Related Data Home Medications Medication Instructions Recorded Confirmed HYDROcodone/APAP 10-325MG [Stanley 1 tab PO TID PRN 06/19/13 12/29/17 10-325] Gabapentin [Neurontin] 800 mg PO TID PRN 02/18/15 12/29/17 Ibuprofen [Motrin] 800 mg PO TID PRN 02/18/15 12/29/17 Previous Rx's Medication Instructions Recorded Cyclobenzaprine [Flexeril] 10 mg PO TID #20 tab 12/29/17 Allergies Allergy/AdvReac Type Severity Reaction Status Date / Time amoxicillin [Amoxicillin] Allergy Swelling Verified 12/29/17 15:14 ampicillin sodium Allergy Rash/Hives Verified 12/29/17 15:14 [From Unasyn] cephalexin monohydrate Allergy Rash/Hives Verified 12/29/17 15:14 [From Keflex] coconut Allergy Anaphylaxis Verified 12/29/17 15:14 cortisone Allergy Rash/Hives Verified 12/29/17 15:14 Iodinated Contrast- Oral and Allergy Unknown Verified 12/29/17 15:14 IV Dye iodine Allergy Unknown Verified 12/29/17 15:14 Penicillins Allergy Swelling Verified 12/29/17 15:14 prednisone Allergy Rash/Hives Verified 12/29/17 15:14 red dye Allergy Nausea & Verified 12/29/17 15:14 Vomiting & Diarrhea sulbactam sodium Allergy Rash/Hives Verified 12/29/17 15:14 [From Unasyn] vancomycin Allergy Rash/Hives Verified 12/29/17 15:14 Review of Systems ROS Statement: Those systems with pertinent positive or pertinent negative responses have been documented in the HPI. ROS Other: All systems not noted in ROS Statement are negative. Musculoskeletal: Reports: back pain Neurological: Reports: numbness Past Medical History Past Medical History: Asthma, GERD/Reflux Additional Past Medical History / Comment(s): migraine, arthritis, chronic back pain History of Any Multi-Drug Resistant Organisms: None Reported Past Surgical History: Hernia Repair, Hysterectomy, Orthopedic Surgery, Tubal Ligation, Uterine Ablation Additional Past Surgical History / Comment(s): issa knees mult arthroscopic sx, cyst removed left wrist and right shoulder, Past Anesthesia/Blood Transfusion Reactions: Postoperative Nausea & Vomiting ( PONV) Past Psychological History: Anxiety, Bipolar, Depression Smoking Status: Current every day smoker Past Alcohol Use History: None Reported Past Drug Use History: None Reported General Exam Limitations: no limitations General appearance: alert, in no apparent distress Head exam: Present: atraumatic, normocephalic Eye exam: Present: normal appearance ENT exam: Present: normal exam Neck exam: Present: normal inspection Respiratory exam: Present: normal lung sounds bilaterally. Absent: respiratory distress, wheezes Cardiovascular Exam: Present: regular rate, normal rhythm GI/Abdominal exam: Present: soft. Absent: distended, tenderness Rectal exam: Present: normal rectal tone External exam: Present: normal external exam Extremities exam: Present: normal inspection Back exam: Present: tenderness (patient has point tenderness at the lumboscaral junction just to the left of the spine. ) Neurological exam: Present: alert, oriented X3, abnormal gait (patient able to walk without assistance though she has a pronounced limp. ), reflexes normal ( reflexes wnl in the patellar and achilles distribution. ), other (exam is somewhat suspect as patient seems to have difficulty performing exam, however when patient is distracted she seemingly does not have any pain with movement. ) Psychiatric exam: Present: normal affect, normal mood Skin exam: Present: warm, dry, intact, normal color. Absent: rash Course Vital Signs 12/29/17 13:06 Temperature 98.1 F Pulse Rate 88 Respiratory 16 Rate Blood Pressure 138/69 O2 Sat by Pulse 99 Oximetry Medical Decision Making - Medical Decision Making Patient presents with a CC of chronic back pain. On initial evaluation, vital signs are stable, patient is in no acute distress. Neurologic exam shows normal rectal tone, reflexes are within normal limits and the Achilles and patellar distributions. Patient states that she cannot feel pain in her toes. She was able to walk to the restroom without assistance though she does have a limp. MRI reviewed, was performed on the eighth of this month does not show any evidence of spinal cord impingement or compression. Patient denies bowel or bladder incontinence. considered epidural abscess, however patient without fever. will check basic labs, ESR, and CRP. no further imaging warranted at this point. patient given valium and toradol. 5:21 PM Lab evaluation of this patient is unremarkable, ESR and CRP are negative. I do not suspect epidural abscess this time. Myofascial release was performed with minimal relief though patient's range of motion is improved. Patient states she has used Flexeril in the past with improvement at this time patient stable for discharge and follow-up with pain management and primary care. Patient was instructed on the use of heat, and stretching. Patient is to return to the emergency department if any concerning signs or symptoms arise. - Lab Data Result diagrams: 12/29/17 15:39 12/29/17 15:39 Lab Results 12/29/17 12/29/17 Range/Units 15:39 15:39 WBC 7.3 (3.8-10.6) k/uL RBC 3.93 (3.80-5.40) m/uL Hgb 13.2 (11.4-16.0) gm/dL Hct 36.8 (34.0-46.0) % MCV 93.7 (80.0-100.0) fL MCH 33.6 (25.0-35.0) pg MCHC 35.9 (31.0-37.0) g/dL RDW 11.9 (11.5-15.5) % Plt Count 198 (150-450) k/uL Neutrophils % 63 % Lymphocytes % 28 % Monocytes % 4 % Eosinophils % 3 % Basophils % 0 % Neutrophils # 4.6 (1.3-7.7) k/uL Lymphocytes # 2.1 (1.0-4.8) k/uL Monocytes # 0.3 (0-1.0) k/uL Eosinophils # 0.2 (0-0.7) k/uL Basophils # 0.0 (0-0.2) k/uL ESR 8 (0-20) mm/hr Sodium 140 (137-145) mmol/L Potassium 4.6 (3.5-5.1) mmol/L Chloride 111 H (98-107) mmol/L Carbon Dioxide 22 (22-30) mmol/L Anion Gap 7 mmol/L BUN 12 (7-17) mg/dL Creatinine 0.69 (0.52-1.04) mg/dL Est GFR (CKD-EPI)AfAm >90 (>60 ml/min/1.73 sqM) Est GFR (CKD-EPI)NonAf >90 (>60 ml/min/1.73 sqM) Glucose 85 (74-99) mg/dL Calcium 9.7 (8.4-10.2) mg/dL C-Reactive Protein <5.0 (<10.0) mg/L HCG, Qual Not Detected Disposition Clinical Impression: SI (sacroiliac) joint inflammation, Mechanical back pain, Chronic back pain Disposition: HOME SELF-CARE Condition: Good Instructions: Chronic Back Pain (ED), Acute Low Back Pain (ED) Is patient prescribed a controlled substance at d/c from ED?: No Referrals: Tayo Mcelroy Jr, DO [Primary Care Provider] - 1-2 days
[2017-12-29 15:48] LABS: Basophils % (A) 0 %; Eosinophils # (A) 0.2 k/uL (0-0.7); Eosinophils % (A) 3 %; HCT 36.8 % (34.0-46.0); HGB 13.2 gm/dL (11.4-16.0); Lymphocytes # (A) 2.1 k/uL (1.0-4.8); Lymphocytes % (A) 28 %; MCH 33.6 pg (25.0-35.0); MCHC 35.9 g/dL (31.0-37.0); MCV 93.7 fL (80.0-100.0); Mean Platelet Volume 7.5; Monocytes # (A) 0.3 k/uL (0-1.0); Monocytes % (A) 4 %; Neutrophils # (A) 4.6 k/uL (1.3-7.7); Neutrophils % (A) 63 %; Platelet Count 198 k/uL (150-450); RBC 3.93 m/uL (3.80-5.40); RDW 11.9 % (11.5-15.5); WBC 7.3 k/uL (3.8-10.6)
[2017-12-29 16:03] LABS: Anion Gap 7 mmol/L; Blood Urea Nitrogen 12 mg/dL (7-17); C Reactive Protein <5.0 mg/L (<10.0); Calcium 9.7 mg/dL (8.4-10.2); Carbon Dioxide 22 mmol/L (22-30); Chloride 111 mmol/L (98-107); Glucose 85 mg/dL (74-99); Potassium 4.6 mmol/L (3.5-5.1); Sodium 140 mmol/L (137-145)
[2017-12-29 16:07] LABS: HCG,Qualitative Serum Not Detected
[2017-12-29] MEDS ORDERED: CYCLOBENZAPRINE 10 MG TAB PO STA (16:38)
[2017-12-29 16:47] LABS: Erythrocyte Sedimentation Rate 8 mm/hr (0-20)
[2017-12-29 17:32] VITALS: BP 124/70; PULSE 80; TEMP 98
== END 2017-12-29 17:31 | disposition home or self-care (01) ==
LOC: EC 11:50
DX: G89.29 Other chronic pain (principal); M46.1 Sacroiliitis, not elsewhere classified; R26.9 Unspecified abnormalities of gait and mobility; M19.90 Unspecified osteoarthritis, unspecified site; F17.200 Nicotine dependence, unspecified, uncomplicated; Z88.0 Allergy status to penicillin; Z88.1 Allergy status to other antibiotic agents; Z88.8 Allergy status to other drugs, medicaments and biological substances; Z91.018 Allergy to other foods; Z91.040 Latex allergy status; Z91.048 Other nonmedicinal substance allergy status; Z98.890 Other specified postprocedural states
CPT/HCPCS: 36415; 80048; 85652; 85025; 86140; 84703; 99283; 96374; 96375; J3360; J1885

== ENCOUNTER → 2018-03-06 | Outpatient (CLI) | payer OTHER ==
[2018-03-06 17:40] LABS: Basophils % (A) 0 %; Eosinophils # (A) 0.1 k/uL (0-0.7); Eosinophils % (A) 2 %; HCT 39.3 % (34.0-46.0); HGB 13.4 gm/dL (11.4-16.0); Lymphocytes # (A) 1.9 k/uL (1.0-4.8); Lymphocytes % (A) 25 %; MCH 32.4 pg (25.0-35.0); MCHC 34.1 g/dL (31.0-37.0); MCV 94.8 fL (80.0-100.0); Mean Platelet Volume 7.7; Monocytes # (A) 0.3 k/uL (0-1.0); Monocytes % (A) 5 %; Neutrophils # (A) 4.9 k/uL (1.3-7.7); Neutrophils % (A) 67 %; Platelet Count 187 k/uL (150-450); RBC 4.15 m/uL (3.80-5.40); RDW 12.7 % (11.5-15.5); WBC 7.4 k/uL (3.8-10.6)
[2018-03-06 17:49] LABS: Appearance,Urine Cloudy (Clear); Bacteria,Urine Occasional /hpf; Bilirubin,Urine Negative (Negative); Blood,Urine Trace (Negative); Color,Urine Light Yellow; Glucose,Urine (UA) Negative (Negative); Ketones,Urine Negative (Negative); Leukocyte Esterase,Urine Large (Negative); Nitrite,Urine Negative (Negative); Protein,Urine Negative (Negative); RBC,Urine 1 /hpf (0-5); Specific Gravity,Urine 1.004 (1.001-1.035); Squamous Epithelial Cell,Urine 3 /hpf (0-4); Urobilinogen,Urine <2.0 mg/dL (<2.0)
[2018-03-06 17:50] LABS: Partial Thromboplastin Time 24.4 sec (22.0-30.0); Prothrombin Time 10.3 sec (9.0-12.0)
[2018-03-07 02:39] LABS: Albumin 4.3 g/dL (3.80-4.90); Albumin/Globulin Ratio 1.95 (1.20-2.10); Anion Gap 8.7 mmol/L (4.00-12.00); Calcium 9.2 mg/dL (8.7-10.3); Carbon Dioxide 26.3 mmol/L (21.6-31.8); Globulin 2.2 g/dL (1.6-3.3); Potassium 3.9 mmol/L (3.5-5.5); Total Bilirubin 0.1 mg/dL (0.2-1.2); Total Protein 6.5 g/dL (6.2-8.2)
== END ==
LOC: LABWHC1 17:17
PROVIDERS: ATTEND Neurological Surgery
DX: M51.16 Intervertebral disc disorders with radiculopathy, lumbar region (principal)
CPT/HCPCS: 36415; 80053; 81001; 85025; 85610; 85730; 87070; 87086

== ENCOUNTER → 2020-03-23 | Outpatient (CLI) | payer OTHER ==
--- NOTE | 2020-03-23 09:53 | US ---
EXAMINATION TYPE: US abdomen complete DATE OF EXAM: 03/23/2020 COMPARISON: None CLINICAL HISTORY: 34-year-old female R10.11 RUQ Pain,R10.12 LUQ,R11.0 Nausea. TECHNIQUE: Multiple sonographic images of the abdomen are obtained. FINDINGS: EXAM MEASUREMENTS: Liver Length: 14.1 cm Gallbladder Wall: 0.2 cm CBD: 0.4 cm Spleen: 9.5 cm Right Kidney: 9.7 x 4.0 x 5.2 cm Left Kidney: 8.8 x 3.6 x 3.8 cm Pancreas: Most of the pancreas is visualized and shows no gross abdomen only. Liver: Slightly coarsened echotexture indicated by the application operations engineer may be on a technical basis. No fo darline lesion seen. Gallbladder: multiple echogenic foci visualized measuring up to 6 mm. None of these show posterior s hadowing. At least one shows ringdown artifact. No wall thickening, abnormal distention, or surroundi ng fluid. Evidence for sonographic Ellison's sign: No CBD: wnl Spleen: wnl Right Kidney: No hydronephrosis. Left Kidney: A 4 mm echogenic focus at the mid pole. No hydronephrosis. Nodular contour and measuring slightly smaller than the right Upper IVC: wnl Abd Aorta: wnl IMPRESSION cysts: 1. Slight coarsened appearance to the hepatic parenchyma may be on a technical basis or could reflect nonspecific hepatocellular disease. Correlate with LFTs. 2. No biliary duct dilatation. 3. Echogenic foci along the gallbladder wall measuring up to 6 mm show no posterior shadowing. At gal[address] st one shows ringdown artifact suggesting adenomyomatosis. The other foci could represent small nonsh adowing calculi or gallbladder wall polyps. Six-month follow-up ultrasound recommended to reassess. N o evidence for cholecystitis. 4. Suspect a 4 mm nonobstructive left renal calculus.
== END | disposition home or self-care (01) ==
LOC: RADUSWWP 07:45
PROVIDERS: ATTEND Nurse Practitioner Family
DX: K76.89 Other specified diseases of liver (principal); R93.3 Abnormal findings on diagnostic imaging of other parts of digestive tract; Z88.0 Allergy status to penicillin; Z88.1 Allergy status to other antibiotic agents; Z88.8 Allergy status to other drugs, medicaments and biological substances
CPT/HCPCS: 76700

== ENCOUNTER 2020-05-11 07:27 | Day surgery (SDC) | payer OTHER ==
[2020-05-07 11:03] VITALS: BMI 28.3
[~2020-05-11 07:27] MED LIST: ACETAMINOPHEN TAB 500 MG TAB PO PRN; CLINDAMYCIN 900 MG in DEXTROSE 5% IN WATER 50 ML IVPB PRN; HEPARIN SODIUM,PORCINE 5,000 UNIT/ML 1 ML VIAL SQ PRN; LACTATED RINGERS 1,000 ML IV SCH; MIDAZOLAM 2 MG/2 ML VIAL IV PRN; fentaNYL (PF) 50 MCG/ML 2 ML AMP IV PRN
[2020-05-11] MEDS: ONDANSETRON 4 MG/2 ML VIAL IVP ONE ×2 (07:53→10:08)
[2020-05-11] MEDS ORDERED: SCOPOLAMINE 1.5MG/72HR PATCH TRANSDERM ONE (08:04)
[2020-05-11] MEDS ORDERED: MIDAZOLAM 2 MG/2 ML VIAL IV ONE (08:11)
--- NOTE | 2020-05-11 08:38 | P.GSHP ---
History of Present Illness H&P Date: 05/11/20 Chief Complaint: Right upper quadrant pain Is a 34-year-old female who presents today for laparoscopic cholecystectomy. Patient's echo points were quadrant pain. She SHOWS EVIDENCE OF CHOLELITHIASIS. Past Medical History Past Medical History: Asthma, GERD/Reflux Additional Past Medical History / Comment(s): migraine, arthritis, chronic back pain History of Any Multi-Drug Resistant Organisms: None Reported Past Surgical History: Hernia Repair, Hysterectomy, Orthopedic Surgery, Tubal Ligation, Uterine Ablation Additional Past Surgical History / Comment(s): issa knees mult arthroscopic sx, cyst removed left wrist and right shoulder, Past Anesthesia/Blood Transfusion Reactions: Previous Problems w/ Anesthesia, Postoperative Nausea & Vomiting (PONV) Additional Past Anesthesia/Blood Transfusion Reaction / Comment(s): family has PONV Smoking Status: Current every day smoker - Past Family History Mother Family Medical History: No Reported History Medications and Allergies Home Medications Medication Instructions Recorded Confirmed Type Gabapentin [Neurontin] 800 mg PO TID PRN 02/18/15 05/11/20 History Albuterol Inhaler [Ventolin Hfa 1 puff INHALATION DAILY PRN 05/07/20 05/11/20 History Inhaler] Ibuprofen [Motrin] 400 mg PO DAILY 05/07/20 05/07/20 History Naproxen 250 mg PO DAILY 05/07/20 05/07/20 History Omeprazole 20 mg PO DAILY 05/07/20 05/11/20 History Allergies Allergy/AdvReac Type Severity Reaction Status Date / Time amoxicillin [Amoxicillin] Allergy Swelling Verified 12/29/17 15:14 ampicillin sodium Allergy Rash/Hives Verified 12/29/17 15:14 [From Unasyn] cephalexin monohydrate Allergy Rash/Hives Verified 12/29/17 15:14 [From Keflex] coconut Allergy Anaphylaxis Verified 12/29/17 15:14 cortisone Allergy Rash/Hives Verified 12/29/17 15:14 Iodinated Contrast Media Allergy Unknown Verified 12/29/17 15:14 [Iodinated Contrast- Oral and IV Dye] iodine Allergy Unknown Verified 12/29/17 15:14 Penicillins Allergy Swelling Verified 12/29/17 15:14 prednisone Allergy Rash/Hives Verified 12/29/17 15:14 red dye Allergy Nausea & Verified 12/29/17 15:14 Vomiting & Diarrhea sulbactam sodium Allergy Rash/Hives Verified 12/29/17 15:14 [From Unasyn] vancomycin Allergy Rash/Hives Verified 12/29/17 15:14 Surgical - Exam Vital Signs Temp Pulse Resp BP Pulse Ox 98.3 F 71 17 116/59 99 05/11/20 07:44 05/11/20 07:44 05/11/20 07:44 05/11/20 07:44 05/11/20 07:44 - General well developed, well nourished, no distress - Eyes PERRL - ENT normal pinna - Neck no masses - Respiratory normal expansion - Cardiovascular Rhythm: regular - Abdomen Abdomen: soft, non tender Assessment and Plan Assessment: Right upper Quadrant pain Cholelithiasis We'll perform laparoscopic cholecystectomy.
[2020-05-11] MEDS ORDERED: MIDAZOLAM 2 MG/2 ML VIAL ONE (09:00)
[2020-05-11] MEDS ORDERED: KETOROLAC 15 MG/ML 1 ML VIAL ONE (09:00)
[2020-05-11] MEDS ORDERED: SUCCINYLCHOLINE CHLORIDE 100 MG/5 ML SYR IV ONE (09:00)
[2020-05-11] MEDS ORDERED: LIDOCAINE 1% INJ 10MG/ML (20 ML MDV) ONE (09:00)
[2020-05-11] MEDS ORDERED: fentaNYL (PF) 50 MCG/ML 2 ML AMP ONE (09:00)
[2020-05-11] MEDS ORDERED: PROPOFOL 10 MG/ML 20 ML VIAL IV ONE (09:00)
[2020-05-11] MEDS ORDERED: ROCURONIUM 10 MG/ML (5 ML VIAL) IV ONE (09:00)
[2020-05-11] MEDS: GENTAMICIN 300 MG in SODIUM CHLORIDE 0.9% 100 ML IVPB PRN ×2 (09:18→09:28)
[2020-05-11] MEDS ORDERED: BUPIVACAINE (PF) 0.25% 30 ML VIAL SQ ONE (09:18)
--- NOTE | 2020-05-11 09:43 | P.OP ---
Date of Procedure: 05/11/20 Preoperative Diagnosis: Cholecystitis Postoperative Diagnosis: Cholecystitis Procedure(s) Performed: Laparoscopic cholecystectomy Anesthesia: VALORIE Surgeon: Agustin Crawford Estimated Blood Loss (ml): 5 Pathology: other (Gallbladder) Condition: stable Disposition: PACU Description of Procedure: The patient was placed on the operating table. The patient received a general endotracheal tube anesthesia. The patients abdomen was prepped and draped in the usual sterile fashion. Through an infraumbilical stab incision, the fascia of the anterior abdominal wall was grasped with a pair of Kochers and then the Veress needle was placed in the peritoneal cavity. Position of the Veress needle was confirmed with positive drop test. The abdomen was then insufflated. After adequate insufflation, the 10 mm trocar was placed in the peritoneal cavity. Following this the laparoscope was placed in the peritoneal cavity. The patient was placed in the head-up, right side up position and then a 5 mm trocar was placed in the right lateral and right subcostal position under direct visualization. A 8 mm trocar was placed in the epigastric position. The gallbladder was grasped in the fundus and infundibulum. Traction on the gallbladder was placed in the lateral and the cephalad positions. The triangle of Calot was visualized.. The cystic duct was bluntly dissected until the union of the cystic duct and common bile duct was seen. A critical view of safety was achieved. The cystic duct was then divided and sealed with the Harmonic scissors. A PDS Endoloop was then placed throughout the cystic duct stump. The cystic artery divided and sealed with the Harmonic scissors. The gallbladder was then removed from the liver bed using Harmonic scissors. The gallbladder was then extracted through the epigastric port site. Operative field was checked for any bleeding spots and Harmonic scissors was used to coagulate the liver bed. The abdomen was irrigated. The trocars were removed. The skin was closed using interrupted 3-0 Vicryl suture. Dermabond dressing were applied. The patient tolerated the procedure well.
[2020-05-11] MEDS ORDERED: LACTATED RINGERS 1,000 ML IV ONE (09:46)
[2020-05-11] MEDS ORDERED: ALBUTEROL NEBULIZED 2.5 MG/3 ML INHALATION ONE (09:57)
[2020-05-11 10:01] VITALS: TEMP 97.6
[2020-05-11] MEDS: HYDROmorphone 0.5 MG/0.5 ML SYRINGE IVP PRN ×2 (10:05→10:15)
[2020-05-11 10:10] VITALS: RESP 16
[2020-05-11] MEDS ORDERED: diphenhydrAMINE 50 MG/ML 1 ML VIAL IVP ONE (10:19)
[2020-05-11 12:05] VITALS: BP 111/62; PULSE 62
== END 2020-05-11 12:06 | disposition home or self-care (01) ==
LOC: OR 07:27
PROVIDERS: ATTEND Surgery
DX: K81.1 Chronic cholecystitis (principal); K21.9 Gastro-esophageal reflux disease without esophagitis; J45.909 Unspecified asthma, uncomplicated; G43.909 Migraine, unspecified, not intractable, without status migrainosus; M19.90 Unspecified osteoarthritis, unspecified site; M79.7 Fibromyalgia; G89.29 Other chronic pain; M54.9 Dorsalgia, unspecified; Z90.710 Acquired absence of both cervix and uterus; Z98.51 Tubal ligation status; Z98.890 Other specified postprocedural states; F17.210 Nicotine dependence, cigarettes, uncomplicated; Z79.1 Long term (current) use of non-steroidal anti-inflammatories (NSAID); Z79.899 Other long term (current) drug therapy; Z88.1 Allergy status to other antibiotic agents; Z91.041 Radiographic dye allergy status; Z88.0 Allergy status to penicillin; Z88.8 Allergy status to other drugs, medicaments and biological substances; Z91.018 Allergy to other foods; Z91.048 Other nonmedicinal substance allergy status
CPT/HCPCS: 88304; 47562; J2250; J1200; J1644; J2405; J2001; J3010; J1580; J1885; J0330; J2704; J1170

== ENCOUNTER → 2024-05-21 | Outpatient (CLI) | payer OTHER ==
[2024-05-21 10:19] LABS: Basophils % (A) 0.2 %; Eosinophils % (A) 3.2 %; HCT 40.4 % (37.2-46.3); HGB 13.4 g/dL (12.0-15.0); Lymphocytes % (A) 27.4 %; MCHC 33.2 g/dL (32.0-37.0); MCV 90.4 FL (80.0-97.0); Mean Platelet Volume 11.1 FL (9.5-12.2); NRBC Per 100 WBC 0 X 10*3/uL (0.00-0.01); Platelet Count 196 X 10*3/uL (140-440); RBC 4.47 X 10*6/uL (4.10-5.20); RDW 12.4 % (11.5-14.5); WBC 4.67 X 10*3/uL (4.50-10.00)
[2024-05-21 10:20] LABS: Basophils # (A) 0.01 X 10*3/uL (0.00-0.10); Eosinophils # (A) 0.15 X 10*3/uL (0.04-0.35); Lymphocytes # (A) 1.28 X 10*3/uL (0.90-5.00); Monocytes # (A) 0.28 X 10*3/uL (0.20-1.00); Neutrophils # (A) 2.94 X 10*3/uL (1.80-7.70)
[2024-05-21 13:01] LABS: ALT 22 U/L (8-44); AST 23 U/L (13-35); Albumin 4.2 g/dL (3.8-4.9); Albumin/Globulin Ratio 1.56 Ratio (1.60-3.17); Alkaline Phosphatase 94 U/L (41-126); BUN/Creat Ratio 13.75 Ratio (12.00-20.00); Calcium 9.6 mg/dL (8.7-10.3); Carbon Dioxide 18.3 mmol/L (21.6-31.8); Chloride 105 mmol/L (96-109); Chol/HDL Ratio 2.98 Ratio; Globulin 2.7 g/dL (1.6-3.3); Glucose 98 mg/dL (70-110); Potassium 4.6 mmol/L (3.5-5.5); Sodium 136 mmol/L (135-145); T4, Free (Free Thyroxine) 1.74 ng/dL (0.80-1.80); Total Bilirubin 0.2 mg/dL (0.3-1.2); Total Protein 6.9 g/dL (6.2-8.2)
[2024-05-21 13:02] LABS: Follicle Stimulating Hormone 9.1 mIU/mL; Luteinizing Hormone 9.9 mIU/mL
[2024-05-22 18:00] LABS: Thyroid Stim Immun Quant 0.76 IU/L (<0.10)
== END | disposition home or self-care (01) ==
LOC: LABWHC1 07:28
PROVIDERS: ATTEND Nurse Practitioner
DX: E05.91 Thyrotoxicosis, unspecified with thyrotoxic crisis or storm (principal); E34.9 Endocrine disorder, unspecified
CPT/HCPCS: 36415; 80053; 80061; 82607; 82671; 83001; 83002; 83036; 84146; 84270; 84305; 84402; 84403; 84439; 84443; 84445; 84480; 85025; 86376